=== PATIENT | female | born 1950 | race Caucasian/White ===

== ENCOUNTER → 2017-01-22 | Outpatient (CLI) | payer MEDICARE, BC | LOC: MC.RAD 11:19 | DX: Z12.31 Encounter for screening mammogram for malignant neoplasm of breast (principal); N63 Unspecified lump in breast ==

== ENCOUNTER → 2017-01-24 | Outpatient (CLI) | payer MEDICARE, BC | LOC: MC.RAD 12:47 | DX: N63 Unspecified lump in breast (principal) ==

== ENCOUNTER → 2018-09-04 | Outpatient (CLI) | payer MEDICARE, BC | LOC: MC.RAD 07:24 | DX: Z12.31 Encounter for screening mammogram for malignant neoplasm of breast (principal) ==

== ENCOUNTER 2018-10-29 14:45 | Outpatient (CLI) | payer MEDICARE, BC ==
[~2018-10-29] VITALS: Ht 157.5 cm; Wt 84.0 kg
[2018-10-29 15:10] VITALS: BP 113/53; PULSE 75; TEMP 98.2
--- NOTE | 2018-10-29 16:20 | NUR ---
Pt arely Reclast well. Reclast handout given to pt. Pt discharged per ambulation.
== END 2018-10-29 16:31 | disposition home or self-care (01) ==
LOC: EUO 14:45
DX: M81.0 Age-related osteoporosis without current pathological fracture (principal)
CPT/HCPCS: J3489

== ENCOUNTER → 2019-12-31 | Outpatient (CLI) | payer MEDICARE, BC | LOC: MC.RAD 12-21 11:30 | DX: Z12.31 Encounter for screening mammogram for malignant neoplasm of breast (principal) ==

== ENCOUNTER → 2021-03-13 | Outpatient (CLI) | payer MEDICARE, BC | LOC: MC.RAD 11:00 | DX: Z12.31 Encounter for screening mammogram for malignant neoplasm of breast (principal) ==

== ENCOUNTER 2021-06-29 11:00 | Outpatient (RCR) | payer MEDICARE, BC | END 2021-07-03 | disposition home or self-care (01) | LOC: WSOT | DX: M25.531 Pain in right wrist (principal); M25.532 Pain in left wrist; R20.2 Paresthesia of skin ==

== ENCOUNTER → 2023-04-17 | Outpatient (CLI) | payer MEDICARE, BC | LOC: COL.RAD 13:06 | DX: K44.9 Diaphragmatic hernia without obstruction or gangrene (principal); K22.89 Other specified disease of esophagus ==

== ENCOUNTER → 2023-05-07 | Outpatient (CLI) | payer MEDICARE | LOC: MC.RAD 15:30 | DX: Z12.31 Encounter for screening mammogram for malignant neoplasm of breast (principal) ==